=== PATIENT | male | born 1995 ===

== ENCOUNTER 2022-09-30 06:24 | Emergency (ER) | payer SELFPAY ==
[~2022-09-30] VITALS: Ht 175.3 cm; Wt 90.0 kg
[2022-09-30 06:30] VITALS: BP 173/88
== END 2022-09-30 09:01 | disposition home or self-care (01) ==
LOC: ER 06:24
DX: F15.10 Other stimulant abuse, uncomplicated (principal)
CPT/HCPCS: 93005; 99283